=== PATIENT | female | born 1945 | race Caucasian/White ===

== ENCOUNTER 2016-08-21 17:26 | Emergency (ER) | payer OTHER ==
[~2016-08-21] VITALS: Ht 157.5 cm; Wt 66.0 kg
[~2016-08-21 17:26] MED LIST: ASPIR 8181 M1 PO; ATORVASTATIN CA20 MG PO; AUGMENTIN875 MG PO; BENTYL20 MG PO; CALTRATE PLUS1 EACH PO; CRANBERRY500 M2 PO; DIFLUCAN150 MG PO; DULERA 100 MCG/13 GM IH; IMODIUM MS REL1 EACH PO; JANUVIA100 MG PO; LEVOTHYROXINE112 MCG PO; LORAZEPAM0.5 MG PO; LOSARTAN-HCTZ1 EAC2 PO; METFORMIN HCL500 M1 PO; METOPROLOL SUCC25 MG PO; MONTELUKAST SOD10 MG PO; MULTI VITAMIN1 EACH PO; NORCO 5/3251 TABLET PO; OMEPRAZOLE20 M2 PO; VESICARE10 MG PO; XOPENEX0.31 MG/3 IH; ZOFRAN4 MG PO; ZYRTEC10 M2 PO
[2016-08-21 23:00] VITALS: BP 125/78
== END 2016-08-21 23:01 | disposition home or self-care (01) ==
LOC: EME 17:26
PROC: 0CQ0XZZ Repair Upper Lip, External Approach (ICD-10-PCS; principal; 2016-08-21)
DX: S01.511A Laceration without foreign body of lip, initial encounter (principal); S20.212A Contusion of left front wall of thorax, initial encounter; W18.39XA Other fall on same level, initial encounter; Y93.01 Activity, walking, marching and hiking; E11.9 Type 2 diabetes mellitus without complications; I10 Essential (primary) hypertension
CPT/HCPCS: 70150; 71101; 99281; 99283

== ENCOUNTER 2017-03-15 19:46 | Inpatient (IN) | payer OTHER ==
[~2017-03-15] VITALS: Ht 157.5 cm; Wt 69.2 kg
[2017-03-15 20:16] LABS: BASOPHIL (%) 0.5 % (0-1); BASOPHIL COUNT 0.1 K/uL (0-0.1); EOSINOPHIL (%) 2.4 % (0-5); EOSINOPHIL COUNT 0.2 K/uL (0-0.3); HEMATOCRIT 38.2 % (36.0-46.0); HEMOGLOBIN 12.9 G/DL (11.9-15.5); IMMATURE GRANULOCYTE (%) 0.3 % (0.0-0.7); LYMPHOCYTE (%) 34.6 % (15-42); LYMPHOCYTE COUNT 3.4 K/uL (1.0-2.8); MCH 30.9 PG (29.0-34.0); MCHC 33.8 G/DL (30.0-36.0); MCV 91.6 FL (83-99); MONOCYTE (%) 7.1 % (3-12); MONOCYTE COUNT 0.7 K/uL (0-0.8); NEUTROPHIL (%) 55.1 % (45-76); NEUTROPHIL COUNT 5.4 K/uL (1.8-6.4); PLATELET COUNT 239 K/uL (156-360); RBC DIS.WIDTH-CV 12.5 % (11.8-14.6); RBC DIS.WIDTH-SD 41.3 % (39-53); RED BLOOD COUNT 4.17 M/uL (3.80-5.20); WHITE BLOOD COUNT 9.7 K/uL (4.1-10.2)
[2017-03-15 20:26] LABS: INTER. NORMALIZED RATIO 0.9
[2017-03-15 20:27] LABS: AMYLASE 91 IU/L (1-118); CHLORIDE 104 mEq/L (99-109); POTASSIUM 3.5 mEq/L (3.7-5.4); SODIUM 140 mEq/L (136-147)
[2017-03-15 20:28] LABS: PTT 27.5 SEC (25-37)
[2017-03-15 20:29] LABS: GLUCOSE 145 mg/dL (70-99)
[2017-03-15 20:32] LABS: CREATININE 0.8 mg/dL (0.6-1.3); GFR ESTIMATE (CALCULATED) > 59 mL/min/; SERUM ETHYL ALCOHOL < 10 mg/dL
[2017-03-15 20:33] LABS: UREA NITROGEN (BUN) 16 mg/dL (9-23)
[2017-03-15 20:35] LABS: LIPASE 63 U/L (1.0-51.0)
[2017-03-15 20:37] LABS: TROP-I INTERPRETATION NEGATIVE; TROPONIN-I < 0.01 ng/mL (0.0-0.30)
[2017-03-15] MEDS ORDERED: METHENAMINE HIPP1 G1 PO (21:53)
[2017-03-15] MEDS ORDERED: HYOSCYAMINE0.375 MG PO (21:55)
[2017-03-15] MEDS ORDERED: METOPROLOL SUCC50 MG PO (21:57)
[2017-03-15 23:00] LABS: HDL CHOLESTEROL 48 MG/DL (Desirable>=50); LDL CHOLESTEROL 26 mg/dL (Desirable<100); NON-HDL CHOLESTEROL 64 mg/dL (Desirable<160); TOTAL CHOLESTEROL 112 mg/dL (Desirable<200); TRIGLYCERIDES 189 MG/DL (Normal: <150)
[2017-03-16 00:09] VITALS: BP 134/90
[2017-03-16 07:39] LABS: APPEARANCE CLOUDY ((CLEAR)); BILIRUBIN NEGATIVE; BLOOD SMALL; COLOR YELLOW ((YELLOW)); GLUCOSE (STRIP) NEGATIVE; KETONES NEGATIVE; LEUKOCYTES LARGE; NITRITE NEGATIVE; PROTEIN (STRIP) NEGATIVE; UROBILINOGEN 0.2 MG/DL (0.2-1.0)
[2017-03-16 07:41] VITALS: BP 151/89
[2017-03-16 07:43] LABS: BACTERIA 1+ /HPF; EPITHELIAL CELLS RARE /HPF; MUCUS TRACE /LPF; RED BLOOD CELLS 20-30 /HPF (0-5); UCUL ADDED? YES; WHITE BLOOD CELLS TNTC /HPF (0-5)
[2017-03-16 07:56] LABS: AMPHETAMINE NEGATIVE (500 ng/mL); BARBITURATES NEGATIVE (200 ng/mL); BENZODIAZEPINES NEGATIVE (150 ng/mL); BUPRENORPHINE NEGATIVE (10 ng/mL); COCAINE NEGATIVE (150 ng/mL); METHADONE NEGATIVE (200 ng/mL); METHAMPHETAMINE NEGATIVE (500 ng/mL); OPIATES (MORPHINE) NEGATIVE (100 ng/mL); OXYCODONE NEGATIVE (100 ng/mL); PHENCYCLIDINE NEGATIVE (25 ng/mL); PROPOXYPHENE NEGATIVE (300 ng/mL); THC CANNABINOIDS NEGATIVE (50 ng/mL); TRICYCLIC ANTIDEPRESSANTS NEGATIVE (300 ng/mL)
[2017-03-16 11:23] VITALS: BP 110/70
[2017-03-16 15:50] VITALS: BP 172/67
[2017-03-16 20:24] VITALS: BP 105/67
[2017-03-17] VITALS (7 sets, daily range): BP systolic 105–135; BP diastolic 58–78
[2017-03-17 05:51] LABS: BASOPHIL (%) 0.7 % (0-1); BASOPHIL COUNT 0.1 K/uL (0-0.1); EOSINOPHIL (%) 1.7 % (0-5); EOSINOPHIL COUNT 0.1 K/uL (0-0.3); HEMATOCRIT 38.9 % (36.0-46.0); IMMATURE GRANULOCYTE (%) 0.2 % (0.0-0.7); LYMPHOCYTE (%) 28.9 % (15-42); LYMPHOCYTE COUNT 2.4 K/uL (1.0-2.8); MCH 30.6 PG (29.0-34.0); MCHC 33.4 G/DL (30.0-36.0); MCV 91.5 FL (83-99); MONOCYTE (%) 9.7 % (3-12); MONOCYTE COUNT 0.8 K/uL (0-0.8); NEUTROPHIL (%) 58.8 % (45-76); PLATELET COUNT 236 K/uL (156-360); RBC DIS.WIDTH-CV 12.7 % (11.8-14.6); RED BLOOD COUNT 4.25 M/uL (3.80-5.20); WHITE BLOOD COUNT 8.4 K/uL (4.1-10.2)
[2017-03-17 06:29] LABS: CHLORIDE 106 MEQ/L (99-109); CREATININE 0.7 MG/DL (0.6-1.3); GFR ESTIMATE (CALCULATED) > 59 mL/min/; GLUCOSE 146 mg/dL (70-99); POTASSIUM 4.2 MEQ/L (3.7-5.4); SODIUM 144 MEQ/L (136-147); UREA NITROGEN (BUN) 13 mg/dL (9-23)
[2017-03-17] MEDS ORDERED: LOSARTAN POTASS50 MG PO (12:24)
[2017-03-17 15:09] LABS: HEMOGLOBIN A1c (GLYCOHEMOGLOB) 6.8 % (Below 5.7)
[2017-03-18 04:41] VITALS: BP 107/63
[2017-03-18 07:25] VITALS: BP 110/74
[2017-03-18] MEDS ORDERED: KEFLEX500 MG PO (09:04)
[2017-03-18] MEDS ORDERED: LOSARTAN POTASS50 MG PO (09:07)
[2017-03-18 12:06] VITALS: BP 128/73
== END 2017-03-18 13:58 | disposition home health service (06) | DRG 65 ==
LOC: EME 19:46 → 5SOUTH 21:26 → EDOF 21:26 → ENRESERV 21:28 → 5SOUTH 23:14
PROVIDERS: Emergency Medicine Emergency Medical Services; Internal Medicine Nephrology; Physician Assistant
DX: I63.9 Cerebral infarction, unspecified (principal); N39.0 Urinary tract infection, site not specified; R13.10 Dysphagia, unspecified; R47.01 Aphasia; R47.02 Dysphasia; R29.702 NIHSS score 2; I10 Essential (primary) hypertension; E11.9 Type 2 diabetes mellitus without complications; E78.5 Hyperlipidemia, unspecified; E03.9 Hypothyroidism, unspecified; Z79.82 Long term (current) use of aspirin; Z79.84 Long term (current) use of oral hypoglycemic drugs; Z87.440 Personal history of urinary (tract) infections; Z91.81 History of falling
CPT/HCPCS: 70450; 70496; 70498; 70551; 71046; 74230; 80048; 80061; 81003; 82150; 82948; 83036; 83690; 83735; 84484; 85025; 85027; 85610; 85730; 86850; 86900; 86901; 87077; 87086; 87186; 92523 GN; 92610 GN; 92611 GN; 93005; 93306; 99281; 99285; G0480; J0696; J1650; J1815; J2060